=== PATIENT | female | born 1970 | race Native Hawaiian/Other Pacific Islander ===

== ENCOUNTER 2017-10-21 14:38 | Emergency (ER) | payer OTHER ==
[2017-10-21] MEDS ORDERED: TESSALON PERLES PO ONE (16:30)
--- NOTE | 2017-10-21 17:04 | Emergency Department Report ---
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 Patient received nebs, Decadron, and magnesium around with improvement. She complains of cough productive of clear sputum. She denies fever. Pain with coughing only. Patient does not have a nebulizer machine. She needs a refill in her albuterol inhaler. - Related Data Previous Rx's Medication Instructions Recorded Last Taken Type Benzonatate [Tessalon Perles] 100 mg PO Q8HR PRN #30 capsule 10/21/17 Unknown Rx RX: ALBUTEROL Inhaler [ProAir HFA 2 puff IH QID PRN #1 inhalation 10/21/17 Unknown Rx Inhaler] RX: predniSONE [Deltasone] 40 mg PO QDAY 5 Days tab 10/21/17 Unknown Rx Allergies Allergy/AdvReac Type Severity Reaction Status Date / Time No Known Allergies Allergy Verified 04/26/16 23:29 ED Review of Systems ROS: Stated complaint: ASTHMA ATTACK Other details as noted in HPI Comment: All other systems reviewed and negative ED Past Medical Hx - Past Medical History Hx Asthma: Yes - Surgical History Past Surgical History?: Yes Additional Surgical History: csection and finger surgery - Social History Smoking Status: Never Smoker Substance Use Type: None - Medications Home Medications: Home Medications Medication Instructions Recorded Confirmed Last Taken Type Benzonatate [Tessalon Perles] 100 mg PO Q8HR PRN #30 capsule 10/21/17 Unknown Rx RX: ALBUTEROL Inhaler [ProAir HFA 2 puff IH QID PRN #1 inhalation 10/21/17 Unknown Rx Inhaler] RX: predniSONE [Deltasone] 40 mg PO QDAY 5 Days tab 10/21/17 Unknown Rx ED Physical Exam - General Limitations: Language Barrier - Other Other exam information: General: No limitations, patient is alert in no acute distress Head exam: Atraumatic, normocephalic Eyes exam: Normal appearance ENT: Moist mucous membrane, normal oropharynx Neck exam: Normal inspection, full range of motion, no meningismus nontender Respiratory exam: Clear to auscultation bilateral, no wheezes, rales, crackles, frequent dry cough Cardiovascular: Normal rate and rhythm, normal heart sounds Abdomen: Soft, nondistended, and nontender, with normal bowel sounds Extremities: No calf tenderness or edema, full range of motion, no deformity Back: Normal Inspection, full range of motion, no tenderness Neurologic: Alert, oriented x3, cranial nerves intact, no motor or sensory deficit Psychiatric: normal affect, normal mood Skin: Warm, dry, intact ED Course Vital Signs 10/21/17 14:55 Temperature 97.7 F Pulse Rate 81 Respiratory 22 Rate Blood Pressure 127/77 Blood Pressure 127/77 [Right] O2 Sat by Pulse 100 Oximetry - Reevaluation(s) Reevaluation #1: 10/21/17 18:09 Pt did not require any additional treatments after arrival because she was asymptomatic. She was provided Tessalon Perles for cough with improvement ED Medical Decision Making - Radiology Data Radiology results: image reviewed (cxr pa/lat read by me: amry) - Differential Diagnosis asthma, bronchitis, pneumonia, pneumothorax Critical Care Time: No Critical care attestation.: If time is entered above; I have spent that time in minutes in the direct care of this critically ill patient, excluding procedure time. ED Disposition Clinical Impression: Asthma exacerbation Disposition: DC-01 TO HOME OR SELFCARE Is pt being admited?: No Does the pt Need Aspirin: No Condition: Stable Instructions: Asthma (ED) Additional Instructions: Take the medication as prescribed. Follow-up with the clinic or the doctor provided. Return if symptoms worsen as indicated by your discharge instructions. [place] la medicacin segn lo prescrito. Seguimiento con la clnica o el mdico provisto. Vuelva si los sntomas empeoran segn lo indicado por meme instrucciones de orquidea. Prescriptions: RX: ALBUTEROL Inhaler [ProAir HFA Inhaler] 2 puff IH QID PRN #1 inhalation PRN Reason: Shortness Of Breath Benzonatate [Tessalon Perles] 100 mg PO Q8HR PRN #30 capsule PRN Reason: Cough RX: predniSONE [Deltasone] 40 mg PO QDAY 5 Days tab Referrals: [facility] [Provider Group] - 3-5 Days (Primary care clinic) JESSICA URIBE MD [Staff Physician] - 3-5 Days (Primary care doctor) Time of Disposition: 18:12 Print Language: MALAY
--- NOTE | 2017-10-21 18:13 | XRay Report ---
FINAL REPORT PROCEDURE: XR CHEST ROUTINE 2V TECHNIQUE: PA and lateral chest radiographs were obtained. CPT 09150 HISTORY: Shortness of breath. Asthma. COMPARISON: Chest radiograph dated 04/26/2016. FINDINGS: Heart: Normal. Mediastinum/Vessels: Normal. Lungs/Pleural space: Normal. Low lung volumes. Bony thorax: Mild multilevel disc space narrowing and osteophytes with mild wedge compression in the mid thoracic spine. Other: IMPRESSION: Lung volumes. No radiographic evidence of acute cardiopulmonary disease.
[2017-10-21 19:04] VITALS: BP 139/76
== END 2017-10-21 18:45 | disposition home or self-care (01) ==
LOC: ED 14:38
DX: J45.901 Unspecified asthma with (acute) exacerbation (principal)
CPT/HCPCS: 71046; 99283

== ENCOUNTER 2020-04-20 23:24 | Inpatient (IN) | payer OTHER ==
--- NOTE | 2020-04-20 23:58 | Emergency Department Report ---
<MAGDA ALEXANDRE - Last Filed: 04/21/20 03:26> ED General Adult HPI - General Chief complaint: Chest Pain Stated complaint: ANXIETY Time Seen by Provider: 04/20/20 23:55 - Related Data Home Medications Medication Instructions Recorded Confirmed Last Taken Advair Diskus 250-50 mcg 1 puff INHALATION PRN PRN 04/21/20 04/24/20 04/20/20 Previous Rx's Medication Instructions Recorded Last Taken Type Aspirin EC [Halfprin EC] 81 mg PO QDAY #30 tablet 04/24/20 Unknown Rx AtorvaSTATin [Lipitor] 80 mg PO QHS #30 tablet 04/24/20 Unknown Rx Citalopram [celeXA] 10 mg PO QDAY #30 tablet 04/24/20 Unknown Rx Clopidogrel [Plavix] 75 mg PO QDAY #30 tablet 04/24/20 Unknown Rx Metoprolol [Lopressor TAB] 50 mg PO BID #60 tablet 04/24/20 Unknown Rx Nitroglycerin [Nitrostat] 0.4 mg SL .Q5MIN PRN #30 tablet 04/24/20 Unknown Rx lisinopriL [Zestril TAB] 5 mg PO QDAY #30 tablet 04/24/20 Unknown Rx Allergies Allergy/AdvReac Type Severity Reaction Status Date / Time Penicillins Allergy Rash Verified 04/20/20 23:57 ED Past Medical Hx - Medications Home Medications: Home Medications Medication Instructions Recorded Confirmed Last Taken Type Advair Diskus 250-50 mcg 1 puff INHALATION PRN PRN 04/21/20 04/24/20 04/20/20 History Aspirin EC [Halfprin EC] 81 mg PO QDAY #30 tablet 04/24/20 Unknown Rx AtorvaSTATin [Lipitor] 80 mg PO QHS #30 tablet 04/24/20 Unknown Rx Citalopram [celeXA] 10 mg PO QDAY #30 tablet 04/24/20 Unknown Rx Clopidogrel [Plavix] 75 mg PO QDAY #30 tablet 04/24/20 Unknown Rx Metoprolol [Lopressor TAB] 50 mg PO BID #60 tablet 04/24/20 Unknown Rx Nitroglycerin [Nitrostat] 0.4 mg SL .Q5MIN PRN #30 tablet 04/24/20 Unknown Rx lisinopriL [Zestril TAB] 5 mg PO QDAY #30 tablet 04/24/20 Unknown Rx ED Medical Decision Making - Lab Data Result diagrams: 04/21/20 00:50 04/21/20 00:50 - Radiology Data Patient signed out to me by Dr. Love so that I could speak with hospitalist regarding admission. I have spoken with Dr. Arellano, he is aware of patient and will admit. 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 He/she was evaluated in the context of the global COVID-19 pandemic, which necessitated consideration that the patient might be at risk for infection with the virus that causes COVID-19. Institutional protocols and algorithms that pertain to the evaluation of patients at risk for COVID-19 are in a state of rapid change based on inf ormation released by regulatory bodies including the CDC and federal and state organizations. These policies and algorithms were followed during the patient's care in the emergency department. Please note that these policies, procedures and recommendations changed on a rapid basis. This is a 49-year-old female. She is brought to the hospital by emergency medical services. The patient complains of central chest pain and pressure. It started this evening. The pain does not radiate to the back, arms or neck. There is no vomiting. There is no diaphoresis. There is positive shortness of breath. There is mild headache. There is no abdominal pain. No urinary symptoms. Denies DVT, pulmonary embolism risk factors. No cardiac risk ratification at that she is aware of. Patient thinks there may be a family history of heart disease but she is not certain. No family history of DVT, pu lmonary embolism that she is aware of. As per verbal report from EMS, patient very anxious and tachypneic/tachycardic in the field, patient given benzodiazepines in the field, which improved her symptoms. -: Gradual, Sudden Location: chest Radiation: other (Patient states pain radiates to the bilateral chest wall) Quality: other (Aching) Consistency: constant Improves with: none Worsens with: movement ED Review of Systems ROS: Stated complaint: ANXIETY Other details as noted in HPI Constitutional: other (Negative loss of taste. Negative loss of smell). denies: fever, malaise Eyes: denies: eye discharge ENT: congestion Respiratory: shortness of breath Cardiovascular: chest pain Gastrointestinal: denies: abdominal pain, nausea, vomiting, hematemesis, melena, hematochezia Genitourinary: denies: dysuria Musculoskeletal: myalgia Neurological: headache, weakness Psychiatric: anxiety Hematological/Lymphatic: denies: easy bleeding ED Past Medical Hx - Past Medical History Hx Asthma: Yes - Surgical History Additional Surgical History: csection and finger surgery - Social History Smoking Status: Never Smoker Substance Use Type: None ED Physical Exam - General Limitations: Language Barrier General appearance: alert, anxious, obese - Head Head exam: Present: atraumatic, normocephalic - Eye Eye exam: Present: normal appearance, EOMI. Absent: nystagmus - ENT ENT exam: Present: normal exam, normal orophraynx, mucous membranes moist, normal external ear exam - Neck Neck exam: Present: normal inspection, full ROM. Absent: tenderness, meningismus - Respiratory Respiratory exam: Present: normal lung sounds bilaterally, chest wall tendernes s. Absent: respiratory distress, wheezes, rales, rhonchi, stridor - Cardiovascular Cardiovascular Exam: Present: regular rate, normal rhythm, normal heart sounds. Absent: bradycardia, tachycardia, irregular rhythm, systolic murmur, diastolic murmur, rubs, gallop - GI/Abdominal GI/Abdominal exam: Present: soft. Absent: distended, tenderness, guarding, rebound, rigid, pulsatile mass - Extremities Exam Extremities exam: Present: normal inspection, full ROM, other (2+ pulses noted in the bilateral upper and lower extremities. There is no palpable cord. negative Homans sign. Muscular compartments are soft. The pelvis is stable.). Absent: pedal edema, calf tenderness - Back Exam Back exam: Present: normal inspection, full ROM. Absent: tenderness, CVA tenderness (R), CVA tenderness (L), paraspinal tenderness, vertebral tenderness - Neurological Exam Neurological exam: Present: alert, other (No facial droop. Tongue midline. Extraocular movements intact bilaterally. Facial sensation intact to light touch in V1, V2, V3 distribution bilaterally. 5 and a 5 strength in 4 extremities. Sensation intact to light touch in 4 extremities.) - Psychiatric Psychiatric exam: Present: anxious - Skin Skin exam: Present: warm, dry, intact, normal color. Absent: rash ED Course Vital Signs 04/21/20 04/21/20 04/21/20 01:15 01:31 01:45 Temperature 98.4 F Pulse Rate 104 H 91 H 89 Respiratory 24 22 20 Rate Blood Pressure 136/55 131/59 134/61 O2 Sat by Pulse 100 96 97 Oximetry 04/21/20 04/21/20 04/21/20 02:01 02:15 02:31 Temperature Pulse Rate 89 88 91 H Respiratory 19 15 15 Rate Blood Pressure 130/59 133/69 130/59 O2 Sat by Pulse 96 98 98 Oximetry 04/21/20 04/21/20 04/21/20 02:45 03:01 03:16 Temperature Pulse Rate 98 H 92 H 92 H Respiratory 20 18 19 Rate Blood Pressure 141/70 133/61 138/61 O2 Sat by Pulse 98 97 99 Oximetry 04/21/20 04/21/20 04/21/20 03:31 03:53 04:01 Temperature Pulse Rate 95 H 87 Respiratory 21 11 L Rate Blood Pressure 139/67 138/61 142/81 O2 Sat by Pulse 97 97 98 Oximetry 04/21/20 04/21/20 04/21/20 04:11 04:21 04:31 Temperature Pulse Rate 79 87 86 Respiratory 13 20 21 Rate Blood Pressure 142/81 141/78 133/66 O2 Sat by Pulse 96 95 96 Oximetry 04/21/20 04/21/20 04/21/20 04:45 05:01 05:31 Temperature Pulse Rate 82 84 90 Respiratory 19 18 Rate Blood Pressure 123/60 127/55 O2 Sat by Pulse 95 95 Oximetry - Reevaluation(s) Reevaluation #1: 04/21/20 00:54 Differential diagnosis, including but not limited to: Acute coronary syndrome, electrolyte derangement, thyroid derangement, costochondritis, pneumonia, pulmonary embolism Assessment and plan: 49-year-old female, with nonspecific chest pain and shortness of breath, EKG today shows marked and persistent bigeminy. She is not currently tachycardic, tachypneic or hypoxic, she denies DVT, pulmonary embolism risk factors, low risk by Wells criteria. Apparently was very tachypneic and tachycardic prior to my personal evaluation as per verbal report from EMS. Place patient on cardiac specialist, obtain appropriate laboratory studies, x-ray of the chest, treat symptoms, and reassess. EKG morphologically today is unchanged from prior, with the exception of persist ent bigeminy. We anticipate admission for cardiac risk ratification. Plan of care discussed with patient, who verbalized understanding, and who is amenable to this plan of care. Reevaluation #2: 04/21/20 01:30 D-dimer negative. Troponin elevated. Normal renal function. Also with mild hypokalemia. Uncertain if this is a type II NSTEMI, secondary to multiple PVCs, or a type I troponin leak. Went back and discussed these results with the patient. This provider is conversant in [place]. Patient is amenable to hospitalization. She states she is pain-free at this time. On the monitor, she has a number of sinus beats, and then goes into alternating PVCs. Cardiology consultation is requested. Hospital physician is paged to arrange admission. ED Medical Decision Making - Lab Data Result diagrams: 04/21/20 00:50 04/22/20 05:34 Vital Signs 04/21/20 01:15 Pulse Rate 104 H Respiratory 24 Rate Blood Pressure 136/55 O2 Sat by Pulse 100 Oximetry Lab Results 04/21/20 04/21/20 04/21/20 Range/Units 00:50 00:50 00:50 Hgb 13.4 (10.1-14.3) gm/dl Hct 39.7 (30.3-42.9) % Plt Count 219 (140-440) K/mm3 PT 12.8 (12.2-14.9) Sec. INR 0.95 (0.87-1.13) D-Dimer 159.51 (0-234) ng/mlDDU Sodium 141 (137-145) mmol/L Potassium 3.4 L (3.6-5.0) mmol/L Chloride 105.2 (98-107) mmol/L Carbon Dioxide 23 (22-30) mmol/L Anion Gap 16 mmol/L BUN 16 (7-17) mg/dL Creatinine 0.6 (0.6-1.2) mg/dL Estimated GFR > 60 ml/min BUN/Creatinine Ratio 27 % Glucose 142 H (65-100) mg/dL Calcium 9.3 (8.4-10.2) mg/dL Magnesium 2.20 (1.7-2.3) mg/dL Total Creatine Kinase 115 (30-135) units/L Troponin T 0.068 H (0.00-0.029) ng/mL Salicylates (2.8-20.0) mg/dL Acetaminophen (10.0-30.0) ug/mL 04/21/20 04/21/20 Range/Units 00:50 00:50 Hgb (10.1-14.3) gm/dl Hct (30.3-42.9) % Plt Count (140-440) K/mm3 PT (12.2-14.9) Sec. INR (0.87-1.13) D-Dimer (0-234) ng/mlDDU Sodium (137-145) mmol/L Potassium (3.6-5.0) mmol/L Chloride (98-107) mmol/L Carbon Dioxide (22-30) mmol/L Anion Gap mmol/L BUN (7-17) mg/dL Creatinine (0.6-1.2) mg/dL Estimated GFR ml/min BUN/Creatinine Ratio % Glucose (65-100) mg/dL Calcium (8.4-10.2) mg/dL Magnesium (1.7-2.3) mg/dL Total Creatine Kinase (30-135) units/L Troponin T (0.00-0.029) ng/mL Salicylates < 0.3 L (2.8-20.0) mg/dL Acetaminophen 5.0 L (10.0-30.0) ug/mL - EKG Data -: EKG Interpreted by Ca EKG shows normal: sinus rhythm Rate: normal - EKG Data When compared to previous EKG there are: changes noted 04/21/20 00:51 The EKG today shows a sinus rhythm, 92 bpm, left axis deviation, borderline left anterior fascicular block, bigeminy/multiple PVCs, QTC 481 ms. This EKG is abnormal. This EKG is not a STEMI. When compared to prior EKG from 2016, bigeminy is new. Left axis deviation is old. - Radiology Data Radiology results: report reviewed, image reviewed Print Report Referring Physician: CICI LOVE Patient Name: OUSMANE STRONG Date of : 1970 Sex: Female Report Date: 2020-04-21 Report Status: Finalized Findings [facility] [address] [place] [address] XRay Report Signed Patient: OUSMANE STRONG MR#: [id number] : 1970 Acct:[id number] Age/Sex: 49 / F ADM Date: 04/20/20 Loc: ED Attending Dr: Ordering Physician: CICI LOVE MD Date of Service: 04/20/20 Procedure(s): XR chest 1V ap Accession Number(s): [id number] cc: CICI LOVE MD Fluoro Time In Minutes: CHEST 1 VIEW 04/21/2020 12:15 AM INDICATION / CLINICAL INFORMATION: dyspnea. COMPARISON: 10/21/17 FINDINGS: SUPPORT DEVICES: None. HEART / MEDIASTINUM: No significant abnormality. LUNGS / PLEURA: No significant pulmonary or pleural abnormality. No pneumothorax. ADDITIONAL FINDINGS: No significant additional findings. IMPRESSION: 1. No acute findings. No significant change. Signer Name: Una Jiménez MD Signed: 04/21/2020 12:43 AM Workstation Name: [id number] Transcribed By: DT Dictated By: Raghav Jiménez MD Electronically Authenticated By: Raghav Jiménez MD Signed Date/Time: 04/21/2042 DD/ TD/TT: Critical Care Time: Yes Critical care time in (mins) excluding proc time.: 35 Critical care attestation.: If time is entered above; I have spent that time in minutes in the direct care of this critically ill patient, excluding procedure time. ED Disposition Is pt being admited?: Yes Heart Score - HEART Score History: Moderately suspicious EKG: Non-specific Age: 45-65 Risk factors: 1-2 risk factors Troponin: 1-3x normal limit HEART Score: 5 - Critical Actions Critical Actions: 4-6 pts:12-16.6% risk of adverse cardiac event. Should be admitted
--- NOTE | 2020-04-21 00:48 | XRay Report ---
CHEST 1 VIEW 04/21/2020 12:15 AM INDICATION / CLINICAL INFORMATION: dyspnea. COMPARISON: 10/21/17 FINDINGS: SUPPORT DEVICES: None. HEART / MEDIASTINUM: No significant abnormality. LUNGS / PLEURA: No significant pulmonary or pleural abnormality. No pneumothorax. ADDITIONAL FINDINGS: No significant additional findings. IMPRESSION: 1. No acute findings. No significant change. Signer Name: Una Jiménez MD Signed: 04/21/2020 12:43 AM Workstation Name: [id number]
[2020-04-21] MEDS ORDERED: NITROGLYCERIN 0.4 MG TAB SUBL SL PRN (00:49)
[2020-04-21] MEDS ORDERED: ASPIRIN 81 MG TAB CHEW PO ONE (00:49)
[2020-04-21] MEDS ORDERED: IBUPROFEN 400 MG TAB PO ONE (00:49)
[2020-04-21] MEDS ORDERED: FAMOTIDINE 20 MG TAB PO ONE (00:49)
[2020-04-21] MEDS ORDERED: SODIUM CHLORIDE 0.9% 500 ML 500 ML IV SCH (01:00)
[2020-04-21 01:10] LABS: Hematocrit 39.7 % (30.3-42.9); Hemoglobin 13.4 gm/dl (10.1-14.3)
[2020-04-21 01:20] LABS: Blood Urea Nitrogen 16 mg/dL (7-17); Calcium 9.3 mg/dL (8.4-10.2); Hemolysis Index 5
[2020-04-21 01:22] LABS: BUN/Creatinine Ratio 27; INR 0.95 (0.87-1.13)
[2020-04-21] MEDS ORDERED: HEPARIN 10,000 UNITS/10 ML VIAL IV ONE (01:28)
[2020-04-21] MEDS ORDERED: POTASSIUM CHLORIDE ER 20 MEQ TAB PO ONE (01:28)
[2020-04-21] MEDS: POTASSIUM CHLORIDE 10 MEQ 10 MEQ/100 ML BAG IV SCH ×2 (01:50→03:56)
[2020-04-21] MEDS ORDERED: HEPARIN/ 0.45% NACL DRIP 25,000 UNIT/500 ML BAG IV SCH (02:00)
[2020-04-21 02:27] LABS: Chol/HDL Ratio 3.21 %; HDL Cholesterol 51 mg/dL (40-59); LDL Cholesterol,Direct 104 mg/dL (50-130)
[2020-04-21] MEDS ORDERED: MORPHINE 2 MG/1 ML INJ IV PRN (03:33)
[2020-04-21] MEDS ORDERED: ONDANSETRON 4 MG/2 ML INJ IV PRN (03:35)
[2020-04-21] MEDS ORDERED: POTASSIUM CHLORIDE 10 MEQ 10 MEQ/100 ML BAG IV ONE (03:53)
[2020-04-21 04:53] LABS: Blood Urea Nitrogen 14 mg/dL (7-17); Hemolysis Index 13
[2020-04-21 05:02] LABS: BUN/Creatinine Ratio 28
--- NOTE | 2020-04-21 05:31 | History and Physical Report ---
History of Present Illness Date of examination: 04/21/20 Date of admission: 04/21/20 03:29 Chief complaint: CHEST PAIN History of present illness: 49 Year old female presenting because of precordial and retrosternal chest pain occurring as pressure, this started few hours before presentation and was associated with shortness of breath, headache tachycardia and anxiety.There is no nausea and vomiting, fever, chills, cough. Past History Past Medical History: hypertension, other (ANXIETY) Past Surgical History: , Other (FINGER SURGERY) Social history: no significant social history Family history: other (CAD IN MOTHER) Medications and Allergies Allergies Allergy/AdvReac Type Severity Reaction Status Date / Time Penicillins Allergy Rash Verified 04/20/20 23:57 Home Medications Medication Instructions Recorded Confirmed Last Taken Type Albuterol Mdi (or & Nicu Only) 2 puff IH QID PRN #1 inhalation 10/21/17 Unknown Rx [ProAir HFA Inhaler] Benzonatate [Tessalon Perles] 100 mg PO Q8HR PRN #30 capsule 10/21/17 Unknown Rx predniSONE [Deltasone] 40 mg PO QDAY 5 Days tab 10/21/17 Unknown Rx Active Meds: Active Medications Acetaminophen (Tylenol) 650 mg PO Q4H PRN PRN Reason: Headache Aspirin (Aspirin) 325 mg PO QDAY [facility] Sodium Chloride (Nacl 0.9% 500 Ml) 500 mls @ 50 mls/hr IV DIRECT JULIÁN Last Admin: 04/21/20 01:14 Dose: 50 mls/hr Documented by: Heparin Sodium/Sodium Chloride (Heparin/ 0.45% Nacl-25,000 Unit/500 Ml) 25,000 unit in 500 mls @ 20 mls/hr IV TITRATE JULIÁN; Protocol Last Admin: 04/21/20 01:49 Dose: 1,000 units/hr, 20 mls/hr Documented by: Morphine Sulfate (Morphine) 2 mg IV Q3H PRN PRN Reason: Pain, Moderate (4-6) Nitroglycerin (Nitrostat) 0.4 mg SL .Q5MIN PRN PRN Reason: Chest Pain Nitroglycerin (Nitro-Bid 2%) 0.5 inch TP QIDNTG [facility]; Protocol Ondansetron HCl (Zofran) 4 mg IV Q8H PRN PRN Reason: Nausea And Vomiting Review of Systems Constitutional: sweats, weakness, no weight loss, no weight gain, no fever, no chills, no malaise, no lethargy Eyes: bilateral: other (NO BILATERAL EYE SYMPTOMS) Ears, nose, mouth and throat: no ear pain Breasts: deferred Cardiovascular: chest pain, shortness of breath, no orthopnea, no palpitations, no rapid/irregular heart beat, no edema, no syncope, no lightheadedness Respiratory: shortness of breath, dyspnea on exertion, no cough, no cough with sputum, no excessive sputum, no hemoptysis, no congestion, no wheezing, no pleurisy, no pain on inspiration Gastrointestinal: no abdominal pain, no nausea, no vomiting, no diarrhea, no constipation, no change in bowel habits, no hematemesis, no melena, no hematochezia Rectal: no pain Musculoskeletal: no neck stiffness, no neck pain Integumentary: no rash, no pruritis, no redness, no sores Neurological: weakness, no seizures, no syncope, no tremors, no vertigo, no headaches, no convulsions Psychiatric: no anxiety, no insomnia, no hopelessness, no confusion Endocrine: no polyuria, no nocturia, no palpatations Exam - Constitutional Vitals: Temp Pulse Resp BP Pulse Ox 98.4 F 87 20 141/78 95 04/21/20 01:31 04/21/20 04:21 04/21/20 04:21 04/21/20 04:21 04/21/20 04:21 General appearance: Present: mild distress - EENT Eyes: Present: PERRL, EOM intact ENT: clear oral mucosa - Neck Neck: Present: supple, normal ROM - Respiratory Respiratory effort: normal - Cardiovascular Rhythm: regular Heart Sounds: Present: S1 & S2. Absent: gallop, systolic murmur, diastolic murmur - Extremities Extremities: no ischemia, No edema Peripheral Pulses: within normal limits - Abdominal General gastrointestinal: Present: soft, non-tender, non-distended. Absent: tender, distended, rigid Female genitourinary: Present: deferred - Rectal Rectal Exam: deferred - Integumentary Integumentary: Present: clear, warm, dry - Musculoskeletal Musculoskeletal: strength equal bilaterally - Psychiatric Psychiatric: appropriate mood/affect HEART Score - HEART Score EKG: Non-specific Age: 45-65 Risk factors: 1-2 risk factors Troponin: Troponin T 0.091 ng/mL (0.00-0.029) H 04/21/20 04:02 Troponin: 1-3x normal limit - Critical Actions Critical Actions: 4-6 pts:12-16.6% risk of adverse cardiac event. Should be admitted Results - Labs CBC & Chem 7: 04/21/20 00:50 04/21/20 04:02 Labs: Laboratory Last Values Hgb 13.4 gm/dl (10.1-14.3) 04/21/20 00:50 Hct 39.7 % (30.3-42.9) 04/21/20 00:50 Plt Count 219 K/mm3 (140-440) 04/21/20 00:50 PT 12.8 Sec. (12.2-14.9) 04/21/20 00:50 INR 0.95 (0.87-1.13) 04/21/20 00:50 D-Dimer 159.51 ng/mlDDU (0-234) 04/21/20 00:50 Sodium 142 mmol/L (137-145) 04/21/20 04:02 Potassium 3.8 mmol/L (3.6-5.0) 04/21/20 04:02 Chloride 107.6 mmol/L (98-107) H 04/21/20 04:02 Carbon Dioxide 21 mmol/L (22-30) L 04/21/20 04:02 Anion Gap 17 mmol/L 04/21/20 04:02 BUN 14 mg/dL (7-17) 04/21/20 04:02 Creatinine 0.5 mg/dL (0.6-1.2) L 04/21/20 04:02 Estimated GFR > 60 ml/min 04/21/20 04:02 BUN/Creatinine Ratio 28 % 04/21/20 04:02 Glucose 129 mg/dL (65-100) H 04/21/20 04:02 Calcium 9.0 mg/dL (8.4-10.2) 04/21/20 04:02 Magnesium 2.20 mg/dL (1.7-2.3) 04/21/20 00:50 Total Creatine Kinase 115 units/L (30-135) 04/21/20 00:50 Troponin T 0.091 ng/mL (0.00-0.029) H 04/21/20 04:02 Triglycerides 145 mg/dL (2-149) 04/21/20 00:50 Cholesterol 164 mg/dL (50-199) 04/21/20 00:50 LDL Cholesterol Direct 104 mg/dL (50-130) 04/21/20 00:50 HDL Cholesterol 51 mg/dL (40-59) 04/21/20 00:50 Cholesterol/HDL Ratio 3.21 % 04/21/20 00:50 TSH 2.690 mlU/mL (0.270-4.200) 04/21/20 00:50 Salicylates < 0.3 mg/dL (2.8-20.0) L 04/21/20 00:50 Acetaminophen 5.0 ug/mL (10.0-30.0) L 04/21/20 00:50 Antoine/IV: IV Catheter Type [Left INT / Saline Lock Antecubital] Assessment and Plan - Patient Problems (1) Hypokalemia Current Visit: Yes Status: Acute Plan to address problem: POTASSIUM REPLACEMENT (2) NSTEMI (non-ST elevated myocardial infarction) Current Visit: Yes Status: Acute Plan to address problem: 1. TELEMTRY MONITORING 2. SERIAL CARDIAC ENZYMES 3. CONTINUE I.V HEPARIN DRIP 4. NITROPASTE 5. ASPIRIN PO 6. I.V MORPHINE FOR PAIN 7. I.V ZOFRAN FOR NAUSEA AND VOMITING 8. OXYGEN BY NASAL CANNULA 9. CARDIOLOGY CONSULT
[2020-04-21 08:26] LABS: Creatine Kinase MB 4.2 ng/mL (0.0-4.0)
[2020-04-21] MEDS ORDERED: ASPIRIN 325 MG TAB PO SCH (10:00)
[2020-04-21] MEDS ORDERED: FLU VACC QUAD 2020-2021 (6 months +)/PF 60 0.5 ML SYRINGE IM ONE (10:00)
[2020-04-21] MEDS: NITROGLYCERIN 2% OINT 1 GM TP SCH ×2 (10:32→14:39)
--- NOTE | 2020-04-21 13:27 | Event Note ---
Date: 04/21/20 Patient seen and examined She is alert and oriented and states she is breathing better She denies chest pain at this time This is the second IMS visit as the patient was admitted earlier this morning Lab results reviewed Cardiology consulted Lungs diminished breath sounds but no rhonchi or wheezing Await cardiology follow-up and evaluation regarding IV heparin
[2020-04-21] MEDS: ACETAMINOPHEN 325 MG TAB PO PRN (14:32)
--- NOTE | 2020-04-21 15:30 | Consultation ---
History of Present Illness Consult date: 04/21/20 Consult reason: chest pain History of present illness: The patient is a 49-year-old Ukrainian speaking female with a history of chronic anxiety. There is no prior documented cardiac history. She presented to the hospital at this time with what appears to be an acute anxiety attack and panic, associated with chest discomfort and palpitations. In the emergency room, ECG was a sinus rhythm with frequent PVCs in a pattern of ventricular bigeminy. The ECG otherwise showed no ischemic ST or T wave abnormalities. The patient reports no exertional pain, no shortness of breath, no edema or orthopnea. There is no syncope. As reported, no prior cardiac history. In the emergency room, troponin levels were measured that where borderline elevated at 0.06, unchanged on serial measurements. A TSH level was normal at 2.6. Chest x-ray shows normal-sized cardiac silhouette and clear lungs. The patient is currently comfortable in her bed on telemetry, no acute distress although she does appear still anxious. Past History Past Medical History: hypertension, other (ANXIETY) Past Surgical History: , Other (FINGER SURGERY) Social history: no significant social history Family history: other (CAD IN MOTHER) Medications and Allergies Allergies Allergy/AdvReac Type Severity Reaction Status Date / Time Penicillins Allergy Rash Verified 04/20/20 23:57 Home Medications Medication Instructions Recorded Confirmed Last Taken Type Advair Diskus 250-50 mcg PRN 04/21/20 04/20/20 History Active Meds: Active Medications Acetaminophen (Tylenol) 650 mg PO Q4H PRN PRN Reason: Headache Last Admin: 04/21/20 14:32 Dose: 650 mg Documented by: Aspirin (Aspirin) 325 mg PO QDAY JULIÁN Last Admin: 04/21/20 10:31 Dose: 325 mg Documented by: Sodium Chloride (Nacl 0.9% 500 Ml) 500 mls @ 50 mls/hr IV DIRECT JULIÁN Last Admin: 04/21/20 01:14 Dose: 50 mls/hr Documented by: Heparin Sodium/Sodium Chloride (Heparin/ 0.45% Nacl-25,000 Unit/500 Ml) 25,000 unit in 500 mls @ 20 mls/hr IV TITRATE JUL[facility]N; Protocol Last Titration: 04/21/20 09:54 Dose: 1,050 units/hr, 21 mls/hr Documented by: Morphine Sulfate (Morphine) 2 mg IV Q3H PRN PRN Reason: Pain, Moderate (4-6) Nitroglycerin (Nitrostat) 0.4 mg SL .Q5MIN PRN PRN Reason: Chest Pain Nitroglycerin (Nitro-Bid 2%) 0.5 inch TP QIDNTG [facility]; Protocol Last Admin: 04/21/20 14:39 Dose: 0.5 inch Documented by: Ondansetron HCl (Zofran) 4 mg IV Q8H PRN PRN Reason: Nausea And Vomiting Review of Systems Cardiovascular: chest pain, palpitations, no orthopnea, no rapid/irregular heart beat, no edema, no syncope, no lightheadedness, no shortness of breath Physical Examination Vital Signs Pulse Resp BP Pulse Ox 104 H 24 136/55 100 04/21/20 01:15 04/21/20 01:15 04/21/20 01:15 04/21/20 01:15 General appearance: no acute distress HEENT: Positive: PERRL Neck: Positive: neck supple Cardiac: Positive: Reg Rate and Rhythm Lungs: Positive: clear to auscultation Neuro: Positive: Grossly Intact Abdomen: Positive: Soft Female genitourinary: deferred Skin: Positive: Clear Extremities: Absent: edema Results 04/21/20 00:50 04/21/20 04:02 Cardiac Enzymes 04/21/20 04/21/20 Range/Units 07:28 13:41 CK-MB (CK-2) 4.2 H 4.0 (0.0-4.0) ng/mL Coagulation 04/21/20 Range/Units 00:50 PT 12.8 (12.2-14.9) Sec. INR 0.95 (0.87-1.13) Lipids 04/21/20 Range/Units 00:50 Triglycerides 145 (2-149) mg/dL Cholesterol 164 (50-199) mg/dL HDL Cholesterol 51 (40-59) mg/dL Cholesterol/HDL Ratio 3.21 % CBC 04/21/20 Range/Units 00:50 Hgb 13.4 (10.1-14.3) gm/dl Hct 39.7 (30.3-42.9) % Plt Count 219 (140-440) K/mm3 Comprehensive Metabolic Panel 04/21/20 04/21/20 Range/Units 00:50 04:02 Sodium 141 142 (137-145) mmol/L Potassium 3.4 L 3.8 (3.6-5.0) mmol/L Chloride 105.2 107.6 H (98-107) mmol/L Carbon Dioxide 23 21 L (22-30) mmol/L BUN 16 14 (7-17) mg/dL Creatinine 0.6 0.5 L (0.6-1.2) mg/dL Glucose 142 H 129 H (65-100) mg/dL Calcium 9.3 9.0 (8.4-10.2) mg/dL EKG interpretations - Telemetry EKG Rhythm: Sinus Rhythm (With frequent PVCs in a pattern of ventricular bigeminy) Assessment and Plan - Patient Problems (1) Chest pain Current Visit: Yes Status: Acute Plan to address problem: Patient presented with an acute anxiety attack associated with frequent ventricular ectopy on ECG. Her TSH level is normal. We will recommend beta-sonido therapy for management of complications and underlying hypertension. An echocardiogram will be done for left ventricular function assessment. A predischarge Lexiscan myocardial perfusion study for ischemia assessment.
--- NOTE | 2020-04-21 15:37 | Event Note ---
Date: 04/21/20 The patient's primary problem appears to be chronic anxiety, I will defer to internal medicine for suggestions on management of this patient's primary clinical issue. She will likely benefit from use of an anxiolytic on a regular basis.
[2020-04-21] MEDS: METOPROLOL TARTRATE 50 MG TAB PO SCH ×2 (16:00→21:10)
[2020-04-21] MEDS: HEPARIN 5,000 UNIT/1 ML VIAL SUB-Q SCH (21:10)
[2020-04-22 06:21] LABS: Blood Urea Nitrogen 10 mg/dL (7-17); Calcium 9.3 mg/dL (8.4-10.2); Hemolysis Index 4
[2020-04-22 06:23] LABS: BUN/Creatinine Ratio 20
[2020-04-22] MEDS ORDERED: REGADENOSON 0.4 MG/5 ML INJ IV ONE ×3 (06:54→11:00)
--- NOTE | 2020-04-22 08:34 | Progress Note ---
Subjective Date of service: 04/22/20 Interval history: 49 Year old female presenting because of precordial and retrosternal chest pain occurring as pressure, this started few hours before presentation and was associated with shortness of breath, headache tachycardia and anxiety.There is no nausea and vomiting, fever, chills, cough. 04/22 patient appears intermittently anxious. NAD. denies CP, sob or dizziness. Denies f/c/nausea. lab results and cardiology note reviewed A/P: Chest pain Patient denies any chest pain at this time Cardiology note reviewed Scheduled for Lexiscan stress test and echocardiogram Elevated troponin Results reviewed Rule out NSTEMI type II secondary to demand ischemia Rule out CAD Cardiology following Scheduled for stress test today and echocardiogram Acute on chronic anxiety disorder We will start the patient on alprazolam and citalopram Hypokalemia Mild Improved Hypertension Fair Continue beta-sonido Objective - Constitutional Vitals: Vital Signs - 12hr 04/21/20 04/21/20 04/22/20 20:53 21:10 00:46 Temperature 98.3 F 98.6 F Pulse Rate 39 L 80 73 Respiratory 20 20 Rate Blood Pressure 128/58 128/58 160/80 O2 Sat by Pulse 97 97 Oximetry 04/22/20 04:32 Temperature 98.5 F Pulse Rate 64 Respiratory 18 Rate Blood Pressure 133/76 O2 Sat by Pulse 96 Oximetry General appearance: Present: no acute distress, well-nourished - EENT Eyes: PERRL, EOM intact ENT: hearing intact, clear oral mucosa - Neck Neck: supple, normal ROM - Respiratory Respiratory effort: normal Respiratory: bilateral: CTA - Cardiovascular Rhythm: regular Heart Sounds: Present: S1 & S2 Extremities: No edema - Gastrointestinal General gastrointestinal: Present: soft, non-tender Rectal Exam: deferred - Genitourinary Female genitourinary: deferred - Integumentary Integumentary: clear - Musculoskeletal Musculoskeletal: strength equal bilaterally - Neurologic Neurologic: no focal deficits - Psychiatric Psychiatric: appropriate mood/affect - Labs CBC & Chem 7: 04/21/20 00:50 04/22/20 05:34 Labs: Abnormal lab results 04/21/20 04/22/20 Range/Units 13:41 05:34 Creatinine 0.5 L (0.6-1.2) mg/dL Glucose 111 H (65-100) mg/dL CK-MB (CK-2) Rel Index 4.2 H (0-4) HEART Score - HEART Score EKG: Non-specific Age: 45-65 Risk factors: 1-2 risk factors Troponin: Troponin T < 0.010 ng/mL (0.00-0.029) 04/21/20 13:41 Troponin: 1-3x normal limit - Critical Actions Critical Actions: 4-6 pts:12-16.6% risk of adverse cardiac event. Should be admitted
--- NOTE | 2020-04-22 12:36 | Event Note ---
Date: 04/22/20 Patient is a follow-up ECG today shows a sinus rhythm with no further ventricular ectopy. However she appears to have developed diffuse T wave inversions involving the inferior and lateral leads. This T wave changes were noted evident on her presenting cardiogram. T wave abnormalities could represent acute ischemia, we will recommend further evaluation with diagnostic coronary angiogram.
[2020-04-22] MEDS: NITROGLYCERIN 2% OINT 1 GM TP SCH (13:38)
[2020-04-22] MEDS: ALPRAZolam 0.25 MG TAB PO SCH ×2 (13:42→22:00)
[2020-04-22] MEDS: METOPROLOL TARTRATE 50 MG TAB PO SCH ×2 (13:42→21:59)
[2020-04-22] MEDS: ASPIRIN EC 81 MG TAB PO SCH (13:42)
[2020-04-22] MEDS: CITALOPRAM 10 MG TAB PO SCH (13:42)
[2020-04-22] MEDS: HEPARIN 5,000 UNIT/1 ML VIAL SUB-Q SCH ×2 (13:43→22:00)
[2020-04-22] MEDS: ACETAMINOPHEN 325 MG TAB PO PRN ×2 (13:58→21:58)
--- NOTE | 2020-04-22 14:54 | Treadmill Report ---
THALLIUM STRESS TEST REPORT The test was done on 04/22. LEFT VENTRICLE: Left ventricle is at the upper limits of normal in size. Perfusion study demonstrates a small fixed anteroapical defect of moderate intensity. Gated analysis demonstrates at least mild left ventricular systolic dysfunction with ejection fraction calculated at 45%. CONCLUSION: Abnormal perfusion study demonstrating mild cardiomyopathy and a fixed anteroapical defect of uncertain etiology, clinical correlation is recommended. [facility]# [id number] CA/NTS
[2020-04-23] MEDS ORDERED: SODIUM CHLORIDE 0.9% 500 ML 500 ML ONE (10:48)
[2020-04-23] MEDS ORDERED: ASPIRIN EC 81 MG TAB PO ONE ×2 (11:10→13:28)
[2020-04-23] MEDS ORDERED: HEPARIN/NS 5000 UNIT/500ML 1,000 ML IR ONE (11:36)
[2020-04-23] MEDS ORDERED: NITROGLYCERIN SYRINGE 3 ML ONE (11:37)
[2020-04-23] MEDS: MIDAZOLAM 2 MG/2 ML INJ ONE ×2 (12:16→12:25)
[2020-04-23] MEDS: fentaNYL 100 MCG/2 ML INJ ONE ×2 (12:16→12:25)
[2020-04-23] MEDS: LIDOCAINE (2%) 20 MG/1 ML VIAL 20 ML MDV INFILTRATI ONE (12:17)
[2020-04-23] MEDS: VERAPAMIL 5 MG/2 ML INJ ONE (12:18)
[2020-04-23] MEDS: HEPARIN 10,000 UNITS/10 ML VIAL ONE (12:18)
[2020-04-23] MEDS ORDERED: HEPARIN/NS 5000 UNIT/500ML 500 ML IR ONE (12:31)
[2020-04-23] MEDS: CLOPIDOGREL 300 MG TAB ONE (13:09)
[2020-04-23] MEDS ORDERED: METOPROLOL TARTRATE 50 MG TAB ONE (13:28)
--- NOTE | 2020-04-23 16:43 | Cardiac Catherization Report ---
CARDIAC CATHETERIZATION AND CORONARY ANGIOPLASTY REPORT REASON FOR PROCEDURE: The patient is a 49-year-old woman, who presented with chest pain, palpitations associated with an acute anxiety and panic attack. Presenting ECG was benign except for frequent PVCs. Cardiac troponin levels were borderline to mildly elevated. The next morning, however, a followup EKG demonstrated diffuse inferolateral T-wave inversions concerning for ischemia. The echocardiogram also showed an underlying cardiomyopathy with left ventricular systolic dysfunction. The patient was therefore recommended to undergo diagnostic coronary angiography. PROCEDURES: 1. Left heart catheterization. 2. Selective left and right coronary angiography. 3. Left ventricular angiography. 4. Coronary angioplasty and stenting of the proximal to mid left anterior descending artery. 5. Sedation time start 12:15, end 12:56. DESCRIPTION OF PROCEDURE: The patient was prepped and draped in a sterile fashion after informed consent. Right radial cath site was prepped and draped after a negative Michael's test. The right radial artery was entered using the Seldinger technique followed by placement of a 6-Turkish hydrophilic sheath. Routine radial cocktail was administered via the sheath. Selective left and right coronary angiography was performed using #3.5 left Bk, and a #4 right Bk. The right Bk was used for left ventricular angiography. FINDINGS: HEMODYNAMICS: Left ventricular end-diastolic pressure was 26, following coronary angiography. Ascending aortic pressure was 170/90. There was no significant pressure gradient on pullback across the aortic valve. CORONARY ANGIOGRAPHY: The left main coronary artery was free of significant disease. The left anterior descending artery contained a focal, irregular, 70-80% stenosis of its proximal to mid segment, adjacent to the origin of a large mid diagonal branch. Following that, another 30% luminal stenosis of the LAD was noted in its distal segment. The circumflex artery and its obtuse marginal branches contained diffuse mild atherosclerosis, with no significant obstructive lesions. The right coronary artery was a large dominant vessel, appeared free of significant disease. The left ventricle was moderately dilated, with severe hypokinesis of the mid to distal anterolateral wall and apex. The overall left ventricular systolic ejection fraction was reduced at 30-35%. CORONARY ANGIOPLASTY: We proceeded with ad hoc coronary intervention to the LAD stenosis. A #3.0 XB guiding catheter was selected and advanced to the left coronary ostium. A 0.014 inch Bindery Machine Setter/Set Up Operator 50 guidewire was then introduced across the lesional segment into the distal LAD. Another Bindery Machine Setter/Set Up Operator 50 guidewire was placed into the diagonal branch. Using a primary stenting maneuver, a 4.5 x 13 mm bare-metal stent was deployed across the lesional segment, and inflated to optimal pressures. Following stenting, the wires were removed, multi view post-intervention angiograms revealed an excellent angiographic result, 0 residual stenosis and no significant compromise of the diagonal branch, which originated from within the lesional segment. The procedure was well tolerated by the patient and there were no complications. The catheters and the wires were removed, sheath removed, and hemostasis achieved using a TR band. The patient was returned to the postprocedure unit in stable condition. There were no complications. CONCLUSION: 1. Severe stenosis of the proximal to mid left anterior descending artery. 2. Ischemic cardiomyopathy, moderately severe left ventricular systolic dysfunction, ejection fraction 30-35%. 3. Successful ad hoc angioplasty and stenting of the LAD, with deployment of a 4.5 x 30 mm bare metal stent. Excellent angiographic result. Note that the mild stenosis of the distal LAD beyond the primary lesional segment, was not treated and this recommended for conservative management. JOB# [id number] ADRIEL/NTS
--- NOTE | 2020-04-23 18:08 | Event Note ---
Date: 04/23/20 Cardiac catheterization was completed via the right radial approach, no complications. We found an 80% stenosis of the proximal to mid LAD, treated successfully with a 4.5 mm bare-metal stent with excellent angiographic result. No complications. Patient will be managed with dual oral antiplatelet therapy aspirin and Plavix, beta-blockers, afterload agent and spironolactone. In addition she would need statin therapy.
[2020-04-23] MEDS: LISINOPRIL 5 MG TAB PO SCH (21:29)
[2020-04-23] MEDS: METOPROLOL TARTRATE 50 MG TAB PO SCH (21:30)
[2020-04-23] MEDS: ALPRAZolam 0.25 MG TAB PO SCH (21:31)
[2020-04-23] MEDS: HEPARIN 5,000 UNIT/1 ML VIAL SUB-Q SCH (21:32)
--- NOTE | 2020-04-23 22:12 | Progress Note ---
Subjective Date of service: 04/23/20 Objective - Constitutional Vitals: Vital Signs - 12hr 04/23/20 04/23/20 04/23/20 12:57 13:43 14:01 Temperature Pulse Rate 69 47 L Respiratory Rate Blood Pressure 174/127 144/73 132/47 O2 Sat by Pulse 95 88 Oximetry 04/23/20 04/23/20 04/23/20 14:15 14:30 14:46 Temperature Pulse Rate Respiratory Rate Blood Pressure 144/64 135/66 128/53 O2 Sat by Pulse Oximetry 04/23/20 04/23/20 04/23/20 15:01 15:15 15:31 Temperature Pulse Rate Respiratory Rate Blood Pressure 129/53 132/63 133/65 O2 Sat by Pulse Oximetry 04/23/20 04/23/20 04/23/20 15:45 16:01 16:15 Temperature Pulse Rate Respiratory Rate Blood Pressure 140/63 126/59 143/66 O2 Sat by Pulse Oximetry 04/23/20 04/23/20 04/23/20 16:30 19:10 21:29 Temperature 98.4 F Pulse Rate 34 L 59 L Respiratory 16 Rate Blood Pressure 149/72 135/50 135/60 O2 Sat by Pulse 95 Oximetry 04/23/20 21:30 Temperature Pulse Rate 59 L Respiratory Rate Blood Pressure 135/60 O2 Sat by Pulse Oximetry - Labs CBC & Chem 7: 04/21/20 00:50 04/22/20 05:34 Labs: Abnormal lab results 04/23/20 Range/Units 18:47 POC Glucose 158 H (70-105) mg/dL HEART Score - HEART Score EKG: Non-specific Age: 45-65 Risk factors: 1-2 risk factors Troponin: Troponin T < 0.010 ng/mL (0.00-0.029) 04/21/20 13:41 Troponin: 1-3x normal limit - Critical Actions Critical Actions: 4-6 pts:12-16.6% risk of adverse cardiac event. Should be admitted
[2020-04-24] MEDS ORDERED: NITROGLYCERIN 0.2 MG PATCH 24HR TD SCH (06:00)
[2020-04-24] MEDS: CITALOPRAM 10 MG TAB PO SCH ×2 (07:44→10:16)
[2020-04-24] MEDS: ASPIRIN EC 81 MG TAB PO SCH ×2 (07:44→10:16)
[2020-04-24] MEDS: HEPARIN 5,000 UNIT/1 ML VIAL SUB-Q SCH ×2 (07:45→10:19)
[2020-04-24] MEDS: METOPROLOL TARTRATE 50 MG TAB PO SCH ×2 (07:45→10:16)
[2020-04-24] MEDS: ALPRAZolam 0.25 MG TAB PO SCH ×2 (07:45→10:16)
[2020-04-24] MEDS: HEPARIN 10,000 UNITS/10 ML VIAL ONE (07:46)
[2020-04-24] MEDS: VERAPAMIL 5 MG/2 ML INJ ONE (07:46)
[2020-04-24] MEDS: LIDOCAINE (2%) 20 MG/1 ML VIAL 20 ML MDV INFILTRATI ONE (07:46)
[2020-04-24] MEDS: MIDAZOLAM 2 MG/2 ML INJ ONE (07:46)
[2020-04-24] MEDS: fentaNYL 100 MCG/2 ML INJ ONE (07:46)
[2020-04-24] MEDS: CLOPIDOGREL 300 MG TAB ONE (07:47)
[2020-04-24] MEDS: ACETAMINOPHEN 325 MG TAB PO PRN (08:24)
[2020-04-24 08:27] VITALS: BP 153/72
[2020-04-24] MEDS ORDERED: CLOPIDOGREL 75 MG TAB PO SCH (10:00)
[2020-04-24] MEDS: LISINOPRIL 5 MG TAB PO SCH (10:16)
--- NOTE | 2020-04-24 10:33 | Progress Note ---
Assessment and Plan Chest pain Cardiac catheterization found an 80% stenosis of the proximal to mid LAD, treated successfully with a 4.5 mm bare-metal stent. LVEF 30-35% Abnormal ECG Acute anxiety attack Recommendations: Advised sodium and fluid restrictions. Continue medical management for coronary artery disease and ischemic cardiomyopathy including DAPT with plavix and aspirin. Stable cardiac figueroa for discharge. Patient advised to follow up in our office in 3-5 days of discharge. Subjective Date of service: 04/24/20 Interval history: Patient is resting in bed comfortably. Denies chest pain, denies shortness of breath. Objective Vital Signs Temp Pulse Pulse Resp BP Pulse Ox 04/24/20 08:21 98.4 F 40 L 18 153/72 96 04/24/20 06:55 62 04/24/20 05:00 66 04/24/20 03:24 98.1 F 66 16 126/67 92 04/23/20 23:07 98.3 F 34 L 14 143/50 96 04/23/20 21:30 59 L 135/60 04/23/20 21:29 59 L 135/60 04/23/20 21:00 66 59 L 18 95 04/23/20 19:10 98.4 F 34 L 16 135/50 95 04/23/20 16:30 149/72 04/23/20 16:15 143/66 04/23/20 16:01 126/59 04/23/20 15:45 140/63 04/23/20 15:31 133/65 04/23/20 15:15 132/63 04/23/20 15:01 129/53 04/23/20 14:46 128/53 04/23/20 14:30 135/66 04/23/20 14:15 144/64 04/23/20 14:01 47 L 132/47 88 04/23/20 13:43 69 144/73 95 04/23/20 12:57 174/127 - Physical Examination General: No Apparent Distress HEENT: Positive: PERRL Neck: Positive: neck supple Cardiac: Positive: Reg Rate and Rhythm Lungs: Positive: Decreased Breath Sounds Neuro: Positive: Grossly Intact Extremities: Absent: edema
[2020-04-25 09:15] LABS: BUN/Creatinine Ratio 28; Blood Urea Nitrogen 14 mg/dL (7-17); Calcium 9.4 mg/dL (8.4-10.2); Hemolysis Index 3
== END 2020-04-24 15:10 | disposition home or self-care (01) | DRG 249 ==
LOC: ED 23:24 → 4A 04-21 03:29
PROVIDERS: ADMIT Internal Medicine; ATTEND Internal Medicine
PROC: 02703DZ Dilation of Coronary Artery, One Artery with Intraluminal Device, Percutaneous Approach (ICD-10-PCS; principal; 2020-04-23)
PROC: 4A023N7 Measurement of Cardiac Sampling and Pressure, Left Heart, Percutaneous Approach (ICD-10-PCS; 2020-04-23)
PROC: B2111ZZ Fluoroscopy of Multiple Coronary Arteries using Low Osmolar Contrast (ICD-10-PCS; 2020-04-23)
PROC: B2151ZZ Fluoroscopy of Left Heart using Low Osmolar Contrast (ICD-10-PCS; 2020-04-23)
DX: I21.4 Non-ST elevation (NSTEMI) myocardial infarction (principal); E87.6 Hypokalemia; I25.10 Atherosclerotic heart disease of native coronary artery without angina pectoris; F41.9 Anxiety disorder, unspecified; I49.3 Ventricular premature depolarization; I10 Essential (primary) hypertension; Z88.0 Allergy status to penicillin; Z79.899 Other long term (current) drug therapy
CPT/HCPCS: 36415; 71045; 78452; 80048; 80061; 80320; 82550; 82553; 82962; 83735; 84443; 84484; 85014; 85018; 85049; 85347; 85379; 85520; 85610; 87641; 92928; 93005; 93017; 93306; 93458; 96361; 96374; G0378; A9270-GY; A9502; C1769; C1876; C1887; C1894; G0480; J1644; J2250; J2785; J3010; J3480; J7040; Q9967

== ENCOUNTER 2022-01-13 14:25 | Emergency (ER) | payer OTHER, SELFPAY ==
[2022-01-13] MEDS ORDERED: ACETAMINOPHEN 500 MG TAB PO ONE ×2 (16:16→22:00)
--- NOTE | 2022-01-13 16:47 | XRay Report ---
CHEST 2 VIEWS INDICATION / CLINICAL INFORMATION: fever. COMPARISON: 04/21/2020 FINDINGS: SUPPORT DEVICES: None. HEART / MEDIASTINUM: No significant abnormality. LUNGS / PLEURA: No significant pulmonary or pleural abnormality. No pneumothorax. ADDITIONAL FINDINGS: No significant additional findings. IMPRESSION: 1. No acute findings. Signer Name: Quinton Lizarraga MD Signed: 01/13/2022 4:42 PM Workstation Name: [id number]
[2022-01-13 18:07] LABS: Alanine Aminotransferase 36 units/L (7-56); Albumin 4.7 g/dL (3.9-5); Blood Urea Nitrogen 10 mg/dL (7-17); Calcium 9.8 mg/dL (8.4-10.2); Hemolysis Index 5
[2022-01-13 18:11] LABS: Hematocrit 40.9 % (30.3-42.9); Hemoglobin 13.9 gm/dl (10.1-14.3); Mean Corpuscular HGB Conc 34 % (30-34); Mean Corpuscular Volume 89 fl (79-97); Platelet Count 219 K/mm3 (140-440); Red Blood Count 4.58 M/mm3 (3.65-5.03); Red Cell Distribution Width 13.2 % (13.2-15.2)
[2022-01-13 18:12] LABS: BUN/Creatinine Ratio 20
[2022-01-13 21:49] LABS: RBC,Urine < 1.0 /HPF (0.0-6.0)
[2022-01-13 21:57] LABS: Color,Urine Colorless (Yellow)
[2022-01-13 21:58] LABS: Bilirubin,Urine Negative (Negative); Blood,Urine Negative (Negative); Protein,Urine <15 mg/dL mg/dL (Negative)
--- NOTE | 2022-01-13 22:39 | Emergency Department Report ---
- General Chief Complaint: Upper Respiratory Infection Stated Complaint: HEAD PAIN Time Seen by Provider: 01/13/22 20:57 Source: patient Mode of arrival: Ambulatory Limitations: No Limitations - History of Present Illness Initial Comments: 51-year-old female presents emerged department complaining of cough congestion coryza fever sensations muscle aches fatigue and known positive COVID contact. She is chest [id number] medication with minimal symptom improvement. She reports no hemoptysis no hematemesis hematochezia, no no diarrhea but has spent some nausea. MD Complaint: sore throat, rhinorrhea, nasal congestion -: Gradual Severity: mild Quality: sharp Consistency: constant Improves With: nothing Worsens With: nothing Associated Symptoms: chills, cough. denies: confusion, right sweats - Related Data Home Medications Medication Instructions Recorded Confirmed Last Taken Advair Diskus 250-50 mcg 1 puff INHALATION PRN PRN 04/21/20 04/24/20 04/20/20 Previous Rx's Medication Instructions Recorded Last Taken Type Aspirin EC [Halfprin EC] 81 mg PO QDAY #30 tablet 04/24/20 Unknown Rx AtorvaSTATin [Lipitor] 80 mg PO QHS #30 tablet 04/24/20 Unknown Rx Citalopram [celeXA] 10 mg PO QDAY #30 tablet 04/24/20 Unknown Rx Clopidogrel [Plavix] 75 mg PO QDAY #30 tablet 04/24/20 Unknown Rx Metoprolol [Lopressor TAB] 50 mg PO BID #60 tablet 04/24/20 Unknown Rx Nitroglycerin [Nitrostat] 0.4 mg SL .Q5MIN PRN #30 tablet 04/24/20 Unknown Rx lisinopriL [Zestril TAB] 5 mg PO QDAY #30 tablet 04/24/20 Unknown Rx Azithromycin [Zithromax] 500 mg PO QDAY #3 tablet 01/13/22 Unknown Rx Benzonatate [Tessalon Perles] 100 mg PO Q8HR #20 capsule 01/13/22 Unknown Rx Allergies Allergy/AdvReac Type Severity Reaction Status Date / Time Penicillins Allergy Rash Verified 01/13/22 16:51 ED Review of Systems ROS: Stated complaint: HEAD PAIN Other details as noted in HPI Comment: All other systems reviewed and negative ED Past Medical Hx - Past Medical History Hx Hypertension: Yes Hx Psychiatric Treatment: Yes (depression, anxiety) Hx Asthma: Yes - Surgical History Additional Surgical History: csection and finger surgery - Social History Smoking Status: Never Smoker Substance Use Type: None - Medications Home Medications: Home Medications Medication Instructions Recorded Confirmed Last Taken Type Advair Diskus 250-50 mcg 1 puff INHALATION PRN PRN 04/21/20 04/24/20 04/20/20 History Aspirin EC [Halfprin EC] 81 mg PO QDAY #30 tablet 04/24/20 Unknown Rx AtorvaSTATin [Lipitor] 80 mg PO QHS #30 tablet 04/24/20 Unknown Rx Citalopram [celeXA] 10 mg PO QDAY #30 tablet 04/24/20 Unknown Rx Clopidogrel [Plavix] 75 mg PO QDAY #30 tablet 04/24/20 Unknown Rx Metoprolol [Lopressor TAB] 50 mg PO BID #60 tablet 04/24/20 Unknown Rx Nitroglycerin [Nitrostat] 0.4 mg SL .Q5MIN PRN #30 tablet 04/24/20 Unknown Rx lisinopriL [Zestril TAB] 5 mg PO QDAY #30 tablet 04/24/20 Unknown Rx Azithromycin [Zithromax] 500 mg PO QDAY #3 tablet 01/13/22 Unknown Rx Benzonatate [Tessalon Perles] 100 mg PO Q8HR #20 capsule 01/13/22 Unknown Rx ED Physical Exam - General Limitations: No Limitations General appearance: alert, in no apparent distress - Head Head exam: Present: atraumatic, normocephalic - Eye Eye exam: Present: normal appearance, PERRL Pupils: Present: normal accommodation - ENT ENT exam: Present: normal exam, mucous membranes moist, TM's normal bilaterally, other (Congestion sinus pressure bilateral) - Neck Neck exam: Present: normal inspection, full ROM - Respiratory Respiratory exam: Present: normal lung sounds bilaterally, rhonchi. Absent: respiratory distress, wheezes, rales, chest wall tenderness, accessory muscle use - Cardiovascular Cardiovascular Exam: Present: regular rate, normal rhythm. Absent: systolic murmur, diastolic murmur, rubs, gallop - GI/Abdominal GI/Abdominal exam: Present: soft, normal bowel sounds - Extremities Exam Extremities exam: Present: normal inspection, normal capillary refill. Absent: tenderness, pedal edema - Back Exam Back exam: Present: normal inspection. Absent: CVA tenderness (R), CVA tenderness (L), vertebral tenderness - Neurological Exam Neurological exam: Present: alert, oriented X3, CN II-XII intact - Psychiatric Psychiatric exam: Present: normal affect, normal mood - Skin Skin exam: Present: warm, dry, intact, normal color. Absent: rash ED Course Vital Signs 01/13/22 01/13/22 14:35 21:58 Temperature 102.5 F H Pulse Rate 95 H Respiratory 24 16 Rate Blood Pressure 137/82 [Left] O2 Sat by Pulse 96 Oximetry ED Medical Decision Making - Lab Data Result diagrams: 01/13/22 17:12 01/13/22 17:12 - EKG Data When compared to previous EKG there are: no significant change - Radiology Data Radiology results: report reviewed [facility] [address] [place] [address] XRay Report Signed Patient: OUSMANE STRONG MR#: [id number] : 1970 Acct:[id number] Age/Sex: 51 / F ADM Date: 01/13/22 Loc: ED Attending Dr: Ordering Physician: ISSA ALMAZAN Date of Service: 01/13/22 Procedure(s): XR chest routine 2V Accession Number(s): [id number] cc: ISSA ALMAZAN Fluoro Time In Minutes: CHEST 2 VIEWS INDICATION / CLINICAL INFORMATION: fever. COMPARISON: 04/21/2020 FINDINGS: SUPPORT DEVICES: None. HEART / MEDIASTINUM: No significant abnormality. LUNGS / PLEURA: No significant pulmonary or pleural abnormality. No pneumothorax. ADDITIONAL FINDINGS: No significant additional findings. IMPRESSION: 1. No acute findings. Signer Name: Quinton Lizarraga MD Signed: 01/13/2022 4:42 PM Workstation Name: [id number] Transcribed By: Dictated By: Quinton Lizarraga MD Electronically Authenticated By: Quinton Lizarraga MD Signed Date/Time: 01/13/221641 DD/ 41 TD/TT: Print Cancel - Medical Decision Making This patient presents with acute cough, most consistent with bronchitis. Differential diagnosis includes COVID-19, pneumonia, bronchitis, postnasal drip. Presentation not consistent with acute bacterial pneumonia, influenza, asthma, transient airway hyperresponsiveness. Presentation not consistent with chronic causes of cough (including GERD, asthma, postnasal discharge, medication side effect, CHF, lung cancer or mass). Normal CXR Plan: , supportive care, reassess This 51-year-old patient presents with symptoms suspicious for likely viral upper respiratory tract infection. Differential includes bacterial pneumonia, sinusitis, allergic rhinitis, COVID-19. Do not suspect underlying Cardiopulmo nary process. I considered but think unlikely dangerous cause of this patient symptoms to include acute coronary syndrome, CHF or COPD exacerbations, pneumonia, pneumothorax. Patient is nontoxic appearing and not in need of emergent medical intervention. Plan: Reassurance, reassessment, [id number] medications, discharge with PCP follow-up This patient presents to the emergency department with fever and lower respiratory symptoms concerning for viral syndrome including flu and COVID-19. Patient has suspicion and is for COVID-19 infection. Differential diagnosis includes other viral causes of lower respiratory symptoms, pneumonia, asthma, bronchitis. Patient is well-appearing with acceptable vitals, lacks comorbidities admission and a reassuring physical examination and is safe to be discharged home nasal swab for COVID testing is recommended. Provide strict return precautions and instructions on self isolation/quarantine and anticipatory guidance. Critical care attestation.: If time is entered above; I have spent that time in minutes in the direct care of this critically ill patient, excluding procedure time. ED Disposition Clinical Impression: URI (upper respiratory infection), Cough Disposition: 01 HOME / SELF CARE / HOMELESS Is pt being admited?: No Does the pt Need Aspirin: No Condition: Stable Instructions: Viral Respiratory Infection, [id number], Cool Mist Vaporizer, Cough, Adult, Cough, Adult, [id number]-[id number], Viral Respiratory Infection Test, Viral Respiratory Infection, COVID-19, COVID-19: How to Protect Yourself and Others - [facility] Prescriptions: Benzonatate [Tessalon Perles] 100 mg PO Q8HR #20 capsule Azithromycin [Zithromax] 500 mg PO QDAY #3 tablet Referrals: PRIMARY CARE, [Primary Care Provider] - 3-5 Days
[2022-01-13 23:21] VITALS: BP 142/83
== END 2022-01-13 23:21 | disposition home or self-care (01) ==
LOC: ED 14:25
DX: J06.9 Acute upper respiratory infection, unspecified (principal); R05.9 Cough, unspecified; I10 Essential (primary) hypertension; F32.9 Major depressive disorder, single episode, unspecified; F41.9 Anxiety disorder, unspecified; J45.909 Unspecified asthma, uncomplicated; Z88.0 Allergy status to penicillin
CPT/HCPCS: 36415; 71046; 80053; 81001; 83690; 85027; 99284